=== PATIENT | female | born 1990 ===

== ENCOUNTER 2018-08-29 20:33 | Emergency (ER) | payer OTHER ==
[2018-08-29 21:06] VITALS: BP 100/68; PULSE 76; RESP 16; TEMP 98.3; O2SAT 99
--- NOTE | 2018-08-29 22:17 | ED PDOC ---
HPI: CCC, URI, Sore Throat Time Seen by Provider: 08/29/18 21:34 Chief Complaint (Nursing): Cough, Cold, Congestion Chief Complaint (Provider): congestion History Per: Patient History/Exam Limitations: no limitations Onset/Duration Of Symptoms: Days (1 week) Current Symptoms Are (Timing): Still Present Additional Complaint(s): 27 y/o female presents for evaluation of cold-symptoms x 1 week. Patient reports nasal congestion, clogged ears, and cough which sometimes is productive of sputum. Patient states her voice is now hoarse. DEnies fever, nausea/vomiting, chest pain, shortness of breath, palpitations, abdominal pain, recent travel, sick contacts. Patient has been taking Felisha-D with little improvement Past Medical History Reviewed: Historical Data, Nursing Documentation, Vital Signs Vital Signs: Last Vital Signs Temp 98.3 F 08/29/18 21:05 Pulse 76 08/29/18 21:05 Resp 16 08/29/18 21:05 BP 100/68 08/29/18 21:05 Pulse Ox 99 08/29/18 21:05 - Medical History PMH: No Chronic Diseases - Surgical History Surgical History: No Surg Hx - Family History Family History: States: No Known Family Hx - Home Medications Home Medications: Ambulatory Orders Medication Instructions Recorded Fluticasone Nasal [Flonase] 1 actuation NS BID #1 bottle 08/29/18 guaiFENesin/Dextromethorphan 1 - 2 tab PO Q12H PRN #20 tab 08/29/18 [guaiFENesin/DM 600-30 mg] - Allergies Allergies/Adverse Reactions: Allergies Allergy/AdvReac Type Severity Reaction Status Date / Time dipyrone Allergy ANAPHYLAXIS Verified 08/29/18 21:08 NSAIDS (Non-Steroidal Allergy ANAPHYLAXIS Verified 08/29/18 21:08 Anti-Inflamma shrimp Allergy ANAPHYLAXIS Verified 08/29/18 21:08 Review of Systems ROS Statement: Except As Marked, All Systems Reviewed And Found Negative ENT: Positive for: Nose Congestion Respiratory: Positive for: Cough Physical Exam - Reviewed Nursing Documentation Reviewed: Yes Vital Signs Reviewed: Yes - Physical Exam Appears: Positive for: Well, Non-toxic, No Acute Distress Head Exam: Positive for: ATRAUMATIC, NORMAL INSPECTION, NORMOCEPHALIC Skin: Positive for: Normal Color Eye Exam: Positive for: Normal appearance ENT: Positive for: Nasal Congestion Cardiovascular/Chest: Positive for: Regular Rate, Rhythm Respiratory: Positive for: Normal Breath Sounds Gastrointestinal/Abdominal: Positive for: Normal Exam Back: Positive for: Normal Inspection Extremity: Positive for: Normal ROM Neurological/Psych: Positive for: Awake, Alert, Oriented (x3) - ECG O2 Sat by Pulse Oximetry: 99 - Progress ED Course And Treament: Patient educated on findings, discharged with rx Flonase, Mucinex-DM, Advised follow up PMD within 2-3 days Rest. FLuids Return precautions given Disposition - Clinical Impression Clinical Impression: Upper respiratory infection - Patient ED Disposition Is Patient to be Admitted: No Counseled Patient/Family Regarding: Studies Performed, Diagnosis, Need For Followup, Rx Given - Disposition Referrals: [facility] [Outside] Disposition: Routine/Home Disposition Time: 22:17 Condition: IMPROVED Prescriptions: Fluticasone Nasal [Flonase] 1 actuation NS BID #1 bottle guaiFENesin/Dextromethorphan [guaiFENesin/DM 600-30 mg] 1 - 2 tab PO Q12H PRN #2 0 tab PRN Reason: Cough And Congestion Instructions: Viral Upper Respiratory Infection, Adult (DC)
== END 2018-08-29 22:41 | disposition home or self-care (01) ==
LOC: H.ER 20:33
DX: J06.9 Acute upper respiratory infection, unspecified (principal); Z88.6 Allergy status to analgesic agent